=== PATIENT | female | born 1985 | race Caucasian/White ===

== ENCOUNTER → 2021-07-31 | Outpatient (CLI) | payer BC | LOC: RAD 08:56 | DX: Z31.41 Encounter for fertility testing (principal); N83.202 Unspecified ovarian cyst, left side; N83.01 Follicular cyst of right ovary ==

== ENCOUNTER → 2021-08-02 | Outpatient (CLI) | payer BC | LOC: RAD 08:24 | DX: Z31.41 Encounter for fertility testing (principal); N83.01 Follicular cyst of right ovary; N83.202 Unspecified ovarian cyst, left side ==